=== PATIENT | female | born 1965 | race Caucasian/White ===

== ENCOUNTER → 2018-09-26 | Outpatient (CLI) | payer OTHER | LOC: ULTRA 09-24 10:16 | DX: K76.0 Fatty (change of) liver, not elsewhere classified (principal); Z90.49 Acquired absence of other specified parts of digestive tract ==

== ENCOUNTER → 2019-11-11 | Outpatient (CLI) | payer OTHER | LOC: RAD 13:25 | PROVIDERS: ATTEND Internal Medicine | DX: R05 Cough (principal) ==